=== PATIENT | female | born 1990 ===

== ENCOUNTER 2025-06-22 10:04 | Emergency (ER) | payer OTHER ==
[~2025-06-22] VITALS: Ht 162.6 cm; Wt 151.5 kg
[2025-06-22] MEDS ORDERED: SALINE MIST45 ML NASAL (11:05)
[2025-06-22 12:02] LABS: BASO % 0.5 % (0.1-1.2); EOS # 0.24 (0.04-0.54); EOS % 3.2 % (0.7-7.0); LYMPH # 2.63 (1.18-3.74); LYMPH % 34.8 % (19.3-53.1); MEAN PLATELET VOLUME 10.90 fl (9.4-12.4); MONO # 0.62 (0.24-0.82); MONO % 8.2 % (4.7-12.5); NEUT # 4.01 (1.56-6.13); NEUT % 53.0 % (34.0-71.1); RED CELL DISTRIBUTION WIDTH 12.7 % (11.6-14.4)
[2025-06-22 13:00] LABS: COVID-19 AG NEGATIVE (NEGATIVE)
[2025-06-22] MEDS ORDERED: ACETAMINOPHEN500 M1 PO (14:00)
[2025-06-22] MEDS ORDERED: MOMETASONE FURO17 GM NASAL (14:00)
[2025-06-22] MEDS ORDERED: AMOX-CLAV 875-1 EACH PO (14:00)
== END 2025-06-22 14:12 | disposition home or self-care (01) ==
LOC: ER 10:04
PROVIDERS: Preventive Medicine Public Health & General Preventive Medicine
DX: J32.9 Chronic sinusitis, unspecified (principal); I10 Essential (primary) hypertension; Z20.822 Contact with and (suspected) exposure to COVID-19; Z91.013 Allergy to seafood